=== PATIENT | female | born 1950 | race Caucasian/White ===

== ENCOUNTER → 2016-06-10 | Outpatient (CLI) | payer MEDICARE ==
[~2016-06-10] MED LIST: ALPR.5T PO; ASPI-586 PO; BUPR200T34 PO; CALC200T5 PO; GLUC100016 PO; LEVO125T PO; MILK140C PO; MULT-890 PO; SERT50TA9 PO
[2016-06-10 09:29] LABS: BASOPHILS % (AUTO) 1 % (0-2); EOSINOPHILS # (AUTO) 0.1 10^3uL; EOSINOPHILS % (AUTO) 3 % (0-4); LYMPHOCYTES # (AUTO) 1.3 X10^3; MEAN CORPUSCULAR HEMOGLOBIN 28.5 PG (26.0-34.0); MEAN CORPUSCULAR HGB CONC 34.1 g/dL (31.0-37.0); MEAN CORPUSCULAR VOLUME 84 FL (80-100); MEAN PLATELET VOLUME 9.6 FL (6.0-9.5); MONOCYTES # (AUTO) 0.4 X10^3; MONOCYTES % (AUTO) 9 % (3-11); NEUTROPHILS # (AUTO) 2.8 X10^3; NEUTROPHILS % (AUTO) 58 % (51-67); PLATELET COUNT 287 10^3uL (150-450); WHITE BLOOD COUNT 4.71 10^3uL (4.0-11.0)
[2016-06-10 09:39] LABS: BILIRUBIN,URINE Negative (Negative); CLARITY,URINE Clear; COLOR,URINE Yellow; GLUCOSE, URINE (UA) Negative (Negative); LEUKOCYTE ESTERASE ,URINE 1+ (Negative); PH,URINE 6.5 (5.0 - 8.0); UROBILINOGEN,URINE 0.2 mg/dL (0.2-1.0)
[2016-06-10 10:12] LABS: ALBUMIN 4.2 g/dL (3.4-5.0); ALKALINE PHOSPHATASE 93 U/L (38-126); ANION GAP 17.7 MEQ/L (3-15); BUN/CREATININE RATIO 19 (10-20); CALCULATED IONIZED CALCIUM 4.3 mg/dL (3.8-4.6); TOTAL PROTEIN 7.1 g/dL (6.4-8.5)
[2016-06-10 10:41] LABS: RBC,URINE 0-2 /HPF; URINE CENTRIFUGED VOLUME 12 mL
== END ==
LOC: LAB 09:15
PROVIDERS: ATTEND Family Medicine
DX: E03.8 Other specified hypothyroidism (principal); M85.89 Other specified disorders of bone density and structure, multiple sites; R51 Headache; F41.1 Generalized anxiety disorder; F32.0 Major depressive disorder, single episode, mild
CPT/HCPCS: 36415; 80053; 80061; 81003; 81015; 84439; 84443; 85025; 87088

== ENCOUNTER → 2016-06-19 | Outpatient (CLI) | payer MEDICARE ==
--- NOTE | 2016-06-19 14:36 | Diagnostic Imaging Report ---
EXAMINATION: DEXA study. INDICATION: Osteoporosis screening CORRELATION STUDY: 03/27/2014 FINDINGS: Bone mineral density of the lumbar spine, L2-L4 is 1.086 g/cm2 with a T-score of -1.0. This is in the LOWER LIMITS OF NORMAL range. Bone mineral density of the left femur is 0.889 g/cm2 with a T-score of -0.9. This is in the LOWER LIMITS OF NORMAL range. Bone mineral density of the right femur is 0.850 g/cm2 with a T-score of -1.3 OSTEOPENIA range. Total mean density of the hips is 0.870 g/cm2 with a T-score of -1.1. IMPRESSION: This scan is considered OSTEOPENIC according to the World Health Organization guidelines. Dictated by: Dictated on workstation # [id number]
== END ==
LOC: RAD 13:45
PROVIDERS: ATTEND Family Medicine
DX: Z78.0 Asymptomatic menopausal state (principal); M85.89 Other specified disorders of bone density and structure, multiple sites
CPT/HCPCS: 77080